=== PATIENT | female | born 1975 | race Caucasian/White ===

== ENCOUNTER 2022-05-03 11:03 | Emergency (ER) | payer OTHER, SELFPAY ==
--- NOTE | ~2022-05-03 | XR_ITS ---
EXAMINATION: XR hand RT min 3V DATE: 05/03/2022 11:24 INDICATION: Pain and swelling at the base of the right thumb post fall TECHNIQUE: Posteroanterior, oblique and lateral views of the right hand were obtained. COMPARISON: None. FINDINGS: Normal alignment. No acute fracture. Small rounded ossicle along the small ulnar styloid process whic h could represent a chronic nonunited avulsion fracture fragment, heterotopic ossicle related to workers compensation claims adjuster juliane soft tissue injury or less likely degenerative loose osteochondral body. [employer]ent screw tracks for prior plate and screw fixation at the distal right radius. 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 Soft tissues are unremarkable. IMPRESSION: 1. Likely chronic post traumatic and postoperative changes at the distal right radius and ulna. No ac [place] band osseous abnormality. Reviewed, dictated and finalized at location B. DRIER TENDER IMPRESSION: 1. Likely chronic post traumatic and postoperative changes at the distal right radius and ulna. No acute osseous abnormality.
[2022-05-03 11:12] VITALS: BP 146/91; PULSE 87; RESP 16; TEMP 36.4; O2SAT 100
[2022-05-03 11:17] VITALS: BP 146/91; PULSE 87; RESP 16; TEMP 36.4; O2SAT 100
--- NOTE | 2022-05-03 11:19 | ED.UPPEXIN ---
HPI - Extremity Injury (Upper) General Chief Complaint: Extremity Injury, Upper Stated Complaint: INJURED R THUMB Time Seen by Provider: 05/03/22 11:15 Source: patient Mode of arrival: ambulatory Limitations: no limitations History of Present Illness HPI narrative: Patient presents today complaining of pain to the right thumb. States she was sliding 1 hour prior to arrival. She was walking up an icy hill when she fell on to her right hand and thumb. Denies numbness or tingling. Currently rates her pain 7/10. She has applied ice prior to arrival. Pain increases with touching the area or movement. Related Data Home Medications Medication Instructions Recorded Confirmed norethindrone 1.5 mg-ethinyl 1 tablet PO DAILY 05/03/22 05/03/22 estradiol 30 mcg(21)/iron 75 mg(7) tablet (Junel FE 1.5/30 (28)) pentoxifylline 400 mg 400 mg PO TID 05/03/22 05/03/22 tablet,extended release Allergies Allergy/AdvReac Type Severity Reaction Status Date / Time No Known Allergies Allergy Verified 05/03/22 11:16 Review of Systems Review of Systems: CONSTITUTIONAL: Denies body aches, fever, chills, or sweats. EYES: Denies visual changes, redness, or discharge. ENT: Denies rhinorrhea, congestion, sore throat, or otalgia. CARDIOVASCULAR: Denies chest pain, palpitations, or edema. RESPIRATORY: Denies cough or dyspnea. GASTROINTESTINAL: Denies abdominal pain, nausea, vomiting, or diarrhea. GENITOURINARY: Denies dysuria or hematuria. SKIN: Denies rash, itching, or wounds. MUSCULOSKELETAL: Denies back pain, or myalgia.+ right thumb pain NEUROLOGIC: Denies headache, numbness, tingling, or weakness. PSYCH: Denies depression or anxiety. PMFSH Comments At time of signature, I have reviewed and agree with nursing past medical, surgical, social and family history unless otherwise noted. Please see nursing chart for further information. There is no relevant family history pertinent to the presenting complaint Exam Narrative: GENERAL: Well-appearing, well-nourished, and in no acute distress. HEAD: Normocephalic, atraumatic. EYES: EOMI. No redness or drainage. Conjunctivae normal. ENT: Mucous membranes pink and moist. NECK: Normal AROM. CHEST: No respiratory distress. EXTREMITIES: Right hand: Tenderness to the interphalangeal joint extending to the thenar eminence with mild ecchymosis. No obvious edema noted. Distal sensation intact. Capillary refill normal. Radial pulse normal. Pain to the finger and thenar eminence with any range of motion. SKIN: Warm, dry, no rash. Capillary refill normal. Normal skin turgor. NEURO: No focal deficits. Alert and oriented x3. Gait steady. PSYCH: Normal affect. No signs of depression or anxiety. Course Course Level of Care: Express Care Visit Vital Signs Vital signs: Vital Signs Oxygen Delivery Room Air 05/03/22 11:11 Temperature 97.6 F 05/03/22 11:17 Pulse Rate 87 05/03/22 11:17 Respiratory Rate 16 05/03/22 11:17 Blood Pressure 146/91 H 05/03/22 11:17 Pulse Oximetry 100 05/03/22 11:17 Oxygen Delivery Room Air 05/03/22 11:11 Reviewed. Pt has been instructed to follow up with her PCP regarding her elevated blood pressure today. MDM - Extremity Injury (Upper) MDM Narrative Medical decision making narrative: X-ray negative for acute fracture. Teo wrap for comfort. No prescription indicated at this time. Anticipatory guidance given. Differential Diagnosis Differential diagnosis: Likely finger sprain, fracture of hand and other (Contusion) Imaging Data Radiologist's impression: ITS Impressions Hand X-Ray 05/03/22 11:28 IMPRESSION: 1. Likely chronic post traumatic and postoperative changes at the distal right radius and ulna. No acute osseous abnormality. Critical Care Time Critical Care Time Critical Care Time: No Discharge Plan Discharge Clinical Impression: Sprain of hand, thumb, right Qualifiers: Encounter type
== END 2022-05-03 11:40 | disposition home or self-care (01) ==
PROVIDERS: Emergency Provider Nurse Practitioner
DX: S63.601A Unspecified sprain of right thumb, initial encounter (principal); W00.9XXA Unspecified fall due to ice and snow, initial encounter; M06.9 Rheumatoid arthritis, unspecified; Z85.72 Personal history of non-Hodgkin lymphomas; Z92.21 Personal history of antineoplastic chemotherapy
CPT/HCPCS: 73130; 99213; G0463

== ENCOUNTER 2024-07-29 08:39 | Outpatient (CLI) | payer OTHER, SELFPAY ==
--- NOTE | ~2024-07-29 | US_ITS ---
Ultrasound of the Abdominal Aorta INDICATION: Pulsatile abdomen TECHNIQUE: Grayscale, color Doppler, and pulsed Doppler images of the aorta and common iliac arteries were obtained. COMPARISON: None. FINDINGS: Maximum vascular dimensions are as follows: Proximal aorta: 2.0 cm Mid aorta: 1.8 cm Distal aorta: 1.7 cm Right common iliac artery: 0.9 cm Left common iliac artery: 1.0 cm There is no evidence of abdominal aortic aneurysm. No para-aortic mass or fluid collection. IMPRESSION: No abdominal aortic aneurysm. Reviewed, dictated and finalized at location M.
== END 2024-07-29 08:40 | disposition home or self-care (01) ==
LOC: MICIMG 08:39
PROVIDERS: PCP Nurse Practitioner Family; Visit Provider Nurse Practitioner Family
DX: R19.8 Other specified symptoms and signs involving the digestive system and abdomen (principal); I71.40 Abdominal aortic aneurysm, without rupture, unspecified
CPT/HCPCS: 76775